=== PATIENT | female | born 1985 | race Caucasian/White ===

== ENCOUNTER → 2021-11-10 | Outpatient (CLI) | payer OTHER ==
[~2021-11-10] MED LIST: OMEPRAZOLE40 MG PO; PHENERGAN 25 MG25 M1 PO
== END ==
LOC: CT 13:00
DX: R16.0 Hepatomegaly, not elsewhere classified (principal)
CPT/HCPCS: 74170; Q9967

== ENCOUNTER → 2021-11-10 | Outpatient (CLI) | payer OTHER | LOC: EXRD 07:58 | DX: R10.10 Upper abdominal pain, unspecified (principal); K76.89 Other specified diseases of liver | CPT/HCPCS: 76705 ==